=== PATIENT | male | born 1995 | race American Indian/Alaskan Native ===

== ENCOUNTER 2018-03-12 02:17 | Emergency (ER) | payer SELFPAY ==
[2018-03-12] MEDS ORDERED: Naproxen 550 mg Tab PO STA (02:44)
[2018-03-12] MEDS ORDERED: Naproxen 550 mg Tab PO ONE (02:56)
[2018-03-12 03:44] LABS: SQUAMOUS EPITHIAL < 1 /hpf (0-5); URINE BILIRUBIN NEGATIVE (NEGATIVE); URINE BLOOD 1+ (NEGATIVE); URINE CLARITY Clear (Clear); URINE COLOR Straw (YELLOW); URINE GLUCOSE (UA) NORMAL (Normal); URINE LEUKOCYTE ESTERASE 1+ Leu/uL (Negative); URINE PROTEIN NEGATIVE (NEGATIVE)
--- NOTE | 2018-03-12 04:11 | US ---
EXAM: US Scrotum CLINICAL HISTORY: 22 years old, male; Pain; Scrotum pain; Additional info: Right testicle pain. R/O torsion. TECHNIQUE: Real-time ultrasound of the scrotum with color Doppler and image documentation. COMPARISON: No relevant prior studies available. FINDINGS: Right testicle: No mass. No torsion. Left testicle: No mass. No torsion. Epididymides: Enlarged, heterogeneous, hypervascular RIGHT epididymis. Scrotum: Small RIGHT hydrocele. Small LEFT hydrocele. IMPRESSION: 1. Findings suggestive of RIGHT epididymitis. Clinical correlation and follow up are recommended. 2. Incidental/non-acute findings are described above.
[2018-03-12] MEDS ORDERED: cefTRIAXone (Rocephin) 250 mg Inj IM STA (04:20)
--- NOTE | 2018-03-12 04:24 | C.PDOC ---
History Of Present Illness Pt c/o right testicle pain. Time Seen by Provider: 03/12/18 02:34 Chief Complaint (Nursing): Male Genitourinary History Per: Patient Onset/Duration Of Symptoms: Hrs (12) Current Symptoms Are (Timing): Still Present Severity: Moderate Quality Of Discomfort: "Pain" Alleviating Factors: None Additional History Per: Prior Records Past Medical History Reviewed: Historical Data, Nursing Documentation, Vital Signs Vital Signs: Last Vital Signs Temp 98.8 F 03/12/18 02:29 Pulse 89 03/12/18 02:29 Resp 22 03/12/18 02:29 BP 148/84 03/12/18 02:29 Pulse Ox 98 03/12/18 02:29 - Medical History PMH: No Chronic Diseases Surgical History: No Surg Hx Family History: States: Unknown Family Hx - Social History Hx Alcohol Use: No Hx Substance Use: No - Immunization History Hx Tetanus Toxoid Vaccination: Yes Hx Influenza Vaccination: Yes Hx Pneumococcal Vaccination: Yes Review Of Systems Except As Marked, All Systems Reviewed And Found Negative. Constitutional: Negative for: Fever, Weakness Cardiovascular: Negative for: Chest Pain Respiratory: Negative for: Shortness of Breath Gastrointestinal: Negative for: Vomiting, Abdominal Pain Genitourinary: Positive for: Penile Discharge, Scrotal Pain. Negative for: Dysuria Musculoskeletal: Negative for: Back Pain Skin: Negative for: Rash Neurological: Negative for: Weakness, Numbness Physical Exam - Physical Exam Appears: Non-toxic, No Acute Distress Skin: Normal Color, Warm, Dry, No Rash Head: Atraumatic, Normacephalic Eye(s): bilateral: Normal Inspection, PERRL, EOMI Neck: Normal ROM, Supple Cardiovascular: Rhythm Regular Respiratory: Normal Breath Sounds, No Accessory Muscle Use Gastrointestinal/Abdominal: Soft, No Tenderness Back: No CVA Tenderness Male Genital: Testicular Tenderness (right), No Inguinal Tenderness, No Inguinal Swelling Extremity: Normal ROM Neurological/Psych: Oriented x3, Normal Motor, Normal Sensation ED Course And Treatment O2 Sat by Pulse Oximetry: 98 Pulse Ox Interpretation: Normal - CT Scan/US Testicular US Other Rad Studies (CT/US): Read By Radiologist, Radiology Report Reviewed CT/US Interpretation: IMPRESSION: 1. Findings suggestive of RIGHT epididymitis. Clinical correlation and follow. up are recommended. 2. Incidental/non-acute findings are described above. Reassessment Condition: Improved Disposition Counseled Patient/Family Regarding: Studies Performed, Diagnosis, Need For Followup, Rx Given - Disposition Referrals: [facility] [Outside] Disposition: HOME/ ROUTINE Disposition Time: 04:24 Condition: STABLE Additional Instructions: Follow up in the clinic for further evaluation and treatment. Return to the ER if you develop worsening of symptoms or if you have any other concerns. Prescriptions: Doxycycline Hyclate 100 mg PO BID #20 capsule Instructions: Epididymitis (DC) - Clinical Impression Clinical Impression: Right epididymitis
[2018-03-12 04:36] VITALS: BP 127/73; PULSE 79; RESP 16; TEMP 98.3; O2SAT 100
== END 2018-03-12 05:02 | disposition home or self-care (01) ==
LOC: C.ER 02:17
DX: N45.1 Epididymitis (principal)
CPT/HCPCS: 76870; 81001; 87086; 87491; 87591; 96372; 99284; J0696